=== PATIENT | female | born 1995 | race Hispanic/Latino ===

== ENCOUNTER 2022-08-09 09:56 | Emergency (ER) | payer SELFPAY ==
[2022-08-09 10:23] VITALS: BP 152/95; PULSE 78; RESP 16; TEMP 36.8; O2SAT 97; BMI 27.8
--- NOTE | 2022-08-09 12:17 | ED.RECABL ---
HPI - Recheck/Abnormal Lab/Rx <Chalo Escobar PA-C - Last Filed: 08/09/22 12:21> General Chief Complaint: Recheck/Abnormal Lab/Rx Stated Complaint: THYROID ISSUES Time Seen by Provider: 08/09/22 12:10 History of Present Illness HPI narrative: 26-year-old female with a history of hypothyroidism presenting to the emergency department for refill of her thyroid medication. Patient states she was from [facility] is unable to reach her primary care provider until she is able to establish [address] in [place] where she plans on moving. Denies any physical symptoms including chest pain, shortness of breath, nausea, vomiting, or any other concerning signs or symptoms. Take levothyroxine 88 mcg per day. Related Data Previous Rx's Medication Instructions Recorded levothyroxine 88 mcg capsule 88 mcg PO DAILY #30 caps 08/09/22 Allergies Allergy/AdvReac Type Severity Reaction Status Date / Time No Known Drug Allergies Allergy Verified 08/09/22 10:26 Review of Systems <MILLICENT Watson Last Filed: 08/09/22 12:21> Review of Systems Narrative: GENERAL: Denies chills, fatigue, malaise, fever, sweats. HEENT: Denies sinus pain, ear pain, sore throat, difficulty swallowing, dizziness. RESPIRATORY: Denies dyspnea, cough, wheezing, hemoptysis, sputum. CARDIOVASCULAR: Denies chest pain, palpitations, orthopnea, edema, GASTROINTESTINAL: Denies nausea, vomiting, abdominal pain, diarrhea, constipation, melena. : Denies dysuria, frequency, incontinence, hematuria, urinary retention. MUSCULOSKELETAL: denies weakness, joint pain, or bony pain SKIN: Denies rash, skin lesions, or other NEUROLOGIC: Denies weakness, headache, numbness, change in speech, confusion, seizures, incoordination. PSYCHIATRIC: No concerning psychosocial issues. 12 point review of systems is negative except for those stated above Patient History <MILLICENT Watson Last Filed: 08/09/22 12:21> Social History Smoking Status: Current every day smoker Smoking Status: Current every day smoker tobacco type: cigarettes Substance Use Type: does not use Exam <MILLICENT Watson Last Filed: 08/09/22 12:21> Narrative Exam Narrative: GENERAL: Well-developed patient, in mild distress. HEAD: Atraumatic. Normocephalic. EYES: Pupils equal round and reactive. Extraocular motions intact. No scleral icterus. No injection or drainage. ENT: Nose without bleeding, purulent drainage. Throat without erythema, tonsillar hypertrophy or exudate. Airway patent. NECK: Trachea midline. Non tender CARDIOVASCULAR: Regular rate and rhythm without murmurs, gallops, or rubs. RESPIRATORY: Clear to auscultation. Breath sounds equal bilaterally. No wheezes, rales, or rhonchi. GASTROINTESTINAL: Abdomen soft, non-tender, nondistended. EXTREMITIES: No edema or joint tenderness. BACK: Nontender without deformity or crepitance. No flank tenderness. NEURO: AOx3. SKIN: No rash or erythema of visible areas Initial Vital Signs Initial Vital Signs: Vital Signs Temperature 98.3 F 08/09/22 10:23 Pulse Rate 78 08/09/22 10:23 Respiratory Rate 16 08/09/22 10:23 Blood Pressure 152/95 H 08/09/22 10:23 Pulse Oximetry 97 08/09/22 10:23 Oxygen Delivery Method 08/09/22 10:23 <Carmine Oconnell DO - Last Filed: 08/19/22 07:41> Initial Vital Signs Initial Vital Signs: Vital Signs Temperature 98.3 F 08/09/22 10:23 Pulse Rate 78 08/09/22 10:23 Respiratory Rate 16 08/09/22 10:23 Blood Pressure 152/95 H 08/09/22 10:23 Pulse Oximetry 97 08/09/22 10:23 Oxygen Delivery Method 08/09/22 10:23 Course <Chalo Escobar PA-C - Last Filed: 08/09/22 12:21> Vital Signs Vital signs: Vital Signs - 8 hr 08/09/22 10:23 Temperature 98.3 F Pulse Rate 78 Respiratory Rate 16 Blood Pressure 152/95 H Pulse Oximetry 97 Oxygen Delivery Method Room Air <DO Slick Mcfarlane Last Filed: 08/19/22 07:41> Vital Signs Vital signs: Vital Signs - 8 hr 08/09/22 10:23 Temperature 98.3 F Pulse Rate 78 Respiratory Rate 16 Blood Pressure 152/95 H Pulse Oximetry 97 Oxygen Delivery Method Room Air MDM - Recheck/Abnormal Lab/Rx <Chalo Escobar PA-C - Last Filed: 08/09/22 12:21> MDM Narrative Medical decision making narrative: This is a 26-year-old female with history of hypothyroidism presenting to the emergency department solely for a medication refill of her levothyroxine. No physical symptoms to address. Levothyroxine prescription refill. Discharge Plan Departure Patient Disposition: Home Clinical Impression: Encounter for medication refill Activity Restrictions/Additional Instructions: Thank you for coming to the [facility] Emergency Department today. The refill prescribed should be enough to cover you until you are able to establish a primary care provider in [place]. Please take as prescribed. I hope you feel better soon. Prescriptions: New levothyroxine 88 mcg capsule 88 mcg PO DAILY Qty: 30 2RF Referrals: Miscellaneous,Doctor, [Primary Care Provider] - Visit Report Forms: Patient Portal/API <Carmine Oconnell DO - Last Filed: 08/19/22 07:41> Cosign ED Attending Cosignature Attestation: Dr Oconnell Co-Sign Statement: I was available for consultation during this patient's emergency department visit. This chart is signed by myself for administrative purposes only. I did not have direct contact with this patient during this visit. They were seen independently by the APC.
== END 2022-08-09 12:20 | disposition home or self-care (01) ==
PROVIDERS: Emergency Provider Physician Assistant Medical
DX: Z76.0 Encounter for issue of repeat prescription (principal)
CPT/HCPCS: 99281